=== PATIENT | male | born 1990 | race Caucasian/White ===

== ENCOUNTER 2020-12-04 14:56 | Emergency (ER) | payer BC ==
[~2020-12-04 14:56] MED LIST: ANAPROX DS550 MG PO; BACTRIM DS 8001 TA1 PO; HYDROCODONE BIT1 T11 PO; KEFLEX500 M1 PO; Motrin,Rufen800 MG PO; PREDNISONE10 MG PO; VIBRAMYCIN100 MG PO; VICODIN ES 7501 TAB PO
[2020-12-04] MEDS ORDERED: CEPHALEXIN500 M1 PO (16:12)
== END 2020-12-04 16:48 | disposition home or self-care (01) ==
LOC: ED 14:56
DX: S50.851A Superficial foreign body of right forearm, initial encounter (principal); Z79.2 Long term (current) use of antibiotics; Z79.899 Other long term (current) drug therapy; X58.XXXA Exposure to other specified factors, initial encounter; Y93.89 Activity, other specified; Y92.89 Other specified places as the place of occurrence of the external cause; Y99.8 Other external cause status